=== PATIENT | male | born 1980 ===

== ENCOUNTER 2023-11-11 13:48 | Emergency (ER) | payer OTHER ==
[~2023-11-11] VITALS: Ht 177.8 cm; Wt 73.9 kg
[2023-11-11] MEDS ORDERED: Lantus100 UNIT/1 SC (13:55)
[2023-11-11] MEDS ORDERED: HUMALOG KW100 UNIT/1 SC (13:55)
== END 2023-11-11 13:58 | disposition home or self-care (01) ==
LOC: ER 13:48
DX: Z76.0 Encounter for issue of repeat prescription (principal); E10.9 Type 1 diabetes mellitus without complications
CPT/HCPCS: 99281

== ENCOUNTER 2023-12-03 04:30 | Emergency (ER) | payer OTHER ==
[~2023-12-03] VITALS: Ht 177.8 cm; Wt 74.8 kg
[~2023-12-03 04:30] MED LIST: HUMALOG KW100 UNIT/1 SC; Lantus100 UNIT/1 SC
[2023-12-03] MEDS ORDERED: Ketorolac Tromethamine 30mg Vial IV ONE (05:25)
[2023-12-03] MEDS ORDERED: Amoxicillin/Clavulanate K 875 MG Tab PO ONE (05:25)
[2023-12-03] MEDS ORDERED: AMOCLA875 PO (05:44)
== END 2023-12-03 05:52 | disposition home or self-care (01) ==
LOC: ER 04:30
DX: K04.7 Periapical abscess without sinus (principal); E11.9 Type 2 diabetes mellitus without complications; Z79.4 Long term (current) use of insulin
CPT/HCPCS: 96374; 99282-25; A9270; J1885

== ENCOUNTER 2024-05-06 14:51 | Emergency (ER) | payer OTHER ==
[~2024-05-06] VITALS: Ht 177.8 cm; Wt 73.9 kg
[~2024-05-06 14:51] MED LIST changes: +AMOCLA875 PO
[2024-05-06 16:07] LABS: Base Excess Venous 4.7 mmol/L; Bicarbonate Venous 27.1 mmol/L (24.0-30.0); PCO2 Venous 49.3 mmHg (38-42); pH Blood Venous 7.39 (7.34-7.37)
[2024-05-06 16:07] LABS: BASOPHILS ABSOLUTE AUTO 0.01 K/mm3 (0.00-0.23); BASOPHILS PERCENT AUTO 0 % (0-2); EOSINOPHILS ABSOLUTE AUTO 0.03 K/mm3 (0.00-0.68); EOSINOPHILS PERCENT AUTO 0 % (0-6); Hematocrit 48.5 % (37.0-53.0); Hemoglobin 16.9 g/dL (13.5-17.5); IMMATURE GRAN ABSOLUTE AUTO 0.02 K/mm3 (0.00-0.10); IMMATURE GRAN PERCENT AUTO 0 % (0-1); LYMPHOCYTES ABSOLUTE AUTO 2.39 K/mm3 (0.84-5.20); LYMPHOCYTES PERCENT AUTO 33 % (21-46); MONOCYTES ABSOLUTE AUTO 0.69 K/mm3 (0.16-1.47); MONOCYTES PERCENT AUTO 10 % (4-13); Mean Corpuscular HGB Conc 34.8 g/dL (31.5-36.5); Mean Corpuscular Volume 86 fL (80-100); Mean Platelet Volume 9.6 fL (9.1-12.4); NEUTROPHILS ABSOLUTE AUTO 4.07 K/mm3 (1.96-9.15); NEUTROPHILS PERCENT AUTO 57 % (41-73); Platelet Count 298 K/mm3 (150-400); RDW Coefficient Variation 12.1 % (11.7-14.2); RDW Standard Deviation 38.5 fL (35.1-46.3); Red Blood Cell Count 5.64 M/mm3 (4.30-5.90); White Blood Cell Count 7.21 K/mm3 (4.00-11.30)
[2024-05-06] MEDS ORDERED: NS 1,000 ML IV SCH (16:20)
[2024-05-06 16:28] LABS: Magnesium, Blood 2.1 mg/dL (1.6-2.4)
[2024-05-06 16:34] LABS: Albumin, Blood 3.7 g/dL (3.4-5.0); Beta-hydroxybutyrate 0.9 mg/dL (0.2-2.8); Bilirubin, Total 0.4 mg/dL (0.1-1.0); Bun/Creatinine Ratio 21.1 (12.0-20.0); Calcium, Blood 9.3 mg/dL (8.5-10.1); Creatinine, Blood 0.8 mg/dL (0.60-1.20); Globulin, Blood 3.7 g/dL (2.2-4.0); Phosphorus, Blood 3.6 mg/dL (2.5-4.9); Potassium, Blood 4.5 mmol/L (3.5-5.5); Total Protein, Blood 7.4 g/dL (6.4-8.2)
[2024-05-06 17:15] LABS: Source, Urine Clean Catch
[2024-05-06 17:20] LABS: Appearance, Urine Clear (Clear); Bilirubin, Urine Neg (Neg); Blood, Urine Neg (Neg); Glucose Qualitative, Urine 4+ (Neg); Ketones, Urine Neg (Neg); Leukocyte Esterase, Urine Neg (Neg); Nitrite, Urine Neg (Neg); Protein, Urine Neg (Neg); Specific Gravity, Urine 1.015 (1.003-1.022); Urobilinogen, Urine NORM (Normal)
[2024-05-06 17:25] LABS: Color, Urine Pale Yellow (P-Yellow)
[2024-05-06] MEDS ORDERED: INSULANI SC (17:40)
[2024-05-06] MEDS ORDERED: HUMALOG100 UNIT/1 SC (17:40)
== END 2024-05-06 17:48 | disposition home or self-care (01) ==
LOC: ER 14:51
PROVIDERS: Student in an Organized Health Care Education/Training Program
DX: E10.65 Type 1 diabetes mellitus with hyperglycemia (principal); Z79.4 Long term (current) use of insulin
CPT/HCPCS: 80053; 81003; 82010; 82803; 83735; 84100; 85025; 99282-25